=== PATIENT | male | born 1965 ===

== ENCOUNTER 2018-04-14 09:46 | Day surgery (SDC) | payer MEDICARE, MEDICAID ==
[2017-05-22 10:54] VITALS: BMI 24.4
[2018-04-14] MEDS ORDERED: Gentamicin 160 MG in Sodium Chloride 0.9% 100 ML IVPB ONE (11:58)
[2018-04-14] MEDS ORDERED: Gentamicin 80 mg in 0.9% NS 160 MG/200 ML BAG IVPB ONE (12:09)
[2018-04-14] MEDS ORDERED: Propofol 10 mg/ml Inj (20 ML) ONE ×2 (12:11→12:23)
[2018-04-14] MEDS ORDERED: Midazolam 2 MG/2 ML VIAL ONE (12:11)
[2018-04-14] MEDS ORDERED: Ciprofloxacin 400mg/200ml D5W 400 MG/200 ML BAG IVPB ONE (12:19)
[2018-04-14] MEDS ORDERED: Lidocaine 2% Jelly (Uro-Jet) ONE (12:27)
--- NOTE | 2018-04-14 12:35 | PCM.SURG1 ---
Surgeon's Initial Post Op Note - Surgeon's Notes Surgeon: Sedrick Project Management Instructor: NETTIE Type of Anesthesia: General LMA Anesthesia Administered By: Staff Pre-Operative Diagnosis: BPH/BOWLES Operative Findings: SAME Post-Operative Diagnosis: BPH/BOWLES Operation Performed: CYSTO Specimen/Specimens Removed: NA Estimated Blood Loss: EBL {In ML}: 0 Blood Products Given: N/A Drains Used: No Drains Post-Op Condition: Good Date of Surgery/Procedure: 04/14/18 Time of Surgery/Procedure: 12:35
[2018-04-14] MEDS: HYDROmorphone 0.5 mg/0.5 ml ISec IVP PRN ×2 (12:45→13:00)
[2018-04-14] MEDS ORDERED: HYDROmorphone 0.5 mg/0.5 ml ISec ONE (12:47)
[2018-04-14 13:11] VITALS: O2SAT 97
[2018-04-14 13:57] VITALS: BP 116/71
[2018-04-14 14:11] VITALS: PULSE 74; RESP 16; TEMP 97.5
--- NOTE | 2018-04-14 23:27 | OP ---
PROCEDURE DATE: 04/14/2018 PREOPERATIVE DIAGNOSES: Urinary frequency and slowing of the stream. POSTOPERATIVE DIAGNOSES: Urinary frequency and slowing of the stream due to benign prostatic hypertrophy with bladder outlet obstruction. PROCEDURE: Cystopanendoscopy. DESCRIPTION OF THE PROCEDURE: Procedure is as follows: Prior to the procedure, a detailed informed consent was obtained from the patient explaining all risks, complications, and limitations of this procedure. He agreed to accept the risks, complications, and limitations. He was brought into the room, and a time-out was taken according to the rules and regulations of [facility]. The patient was draped and prepped in lithotomy position and cystoscoped with #21 Storz panendoscope. Pendulous and membranous urethra was normal. The prostatic urethra showed trilobar hypertrophy with significant outlet obstruction. The bladder was entered atraumatically. There was no evidence of urothelial tumor or stone. Both ureteral orifices effluxed clear urine. There was +3 trabeculation of the bladder. Based on this observation, there appears to be significant bladder outlet obstruction. Due to BPH, the patient will be started on Flomax and kept on Cipro for one week and follow up in our office, and we will determine further therapy. Dane Dubose MD
== END 2018-04-14 14:15 | disposition home or self-care (01) ==
LOC: C.SDS 09:46
PROVIDERS: ATTEND Urology
DX: N40.1 Benign prostatic hyperplasia with lower urinary tract symptoms (principal); R35.0 Frequency of micturition; R39.12 Poor urinary stream
CPT/HCPCS: 52000; 82948; J0744; J1170; J1580

== ENCOUNTER 2018-05-19 09:45 | Day surgery (SDC) | payer MEDICARE, MEDICAID ==
[2018-04-25 11:40] VITALS: BMI 26.4
[2018-05-19 11:38] LABS: BASO # 0.1 K/uL (0.0-0.2); BASO % 0.7 % (0.0-2.0); EOS # 0.2 K/uL (0.0-0.7); EOS % 1.6 % (0.0-4.0); HEMOGLOBIN 12.7 g/dL (12.0-18.0); LYMPH # 2.2 K/uL (1.0-4.3); LYMPH % 23.1 % (20.0-40.0); MEAN CORPUSCULAR HEMOGLOBIN 27.1 pg (27.0-31.0); MEAN PLATELET VOLUME 7.6 fL (7.2-11.7); MONO # 0.6 K/uL (0.0-0.8); MONO % 5.7 % (0.0-10.0); NEUT # 6.6 K/uL (1.8-7.0); NEUT % 68.9 % (50.0-75.0); RBC 4.71 Mil/uL (4.40-5.90); RED CELL DISTRIBUTION WIDTH 14.7 % (11.5-14.5); WHITE BLOOD COUNT 9.6 K/uL (4.8-10.8)
[2018-05-19 11:44] LABS: INR 1.1; PROTHROMBIN TIME 11.9 SECONDS (9.7-12.2)
[2018-05-19 11:46] LABS: MEAN CELL VOLUME 82.1 fL (80.0-94.0)
[2018-05-19 11:51] LABS: BLOOD UREA NITROGEN 19 mg/dL (9-20); CALCIUM 8.5 mg/dl (8.6-10.4); GFR NON-AFRICAN AMERICAN > 60
[2018-05-19] MEDS ORDERED: Gentamicin 80 mg in 0.9% NS 160 MG/200 ML BAG IVPB ONE (13:32)
[2018-05-19] MEDS ORDERED: Ciprofloxacin 400mg/200ml D5W 400 MG/200 ML BAG IVPB ONE (13:32)
[2018-05-19] MEDS ORDERED: Propofol 10 mg/ml Inj (20 ML) ONE (13:34)
[2018-05-19] MEDS ORDERED: Midazolam 2 MG/2 ML VIAL ONE (13:35)
[2018-05-19] MEDS ORDERED: Lidocaine Hydrochloride 5 ML INJ ONE (14:12)
--- NOTE | 2018-05-19 14:20 | PCM.SURG1 ---
Surgeon's Initial Post Op Note - Surgeon's Notes Surgeon: Sedrick Election Supervisor: maria antonia Type of Anesthesia: General LMA Anesthesia Administered By: staff Pre-Operative Diagnosis: BPH/Serna Operative Findings: same Post-Operative Diagnosis: Same Operation Performed: TULAP Specimen/Specimens Removed: NA Estimated Blood Loss: EBL {In ML}: 0 Blood Products Given: N/A Drains Used: No Drains Post-Op Condition: Good Date of Surgery/Procedure: 05/19/18 Time of Surgery/Procedure: 14:19
[2018-05-19] MEDS: HYDROmorphone 0.5 mg/0.5 ml ISec IVP PRN ×2 (14:37→14:55)
[2018-05-19 15:31] VITALS: PULSE 81; RESP 6; O2SAT 97
[2018-05-19 15:59] VITALS: TEMP 98
[2018-05-19 16:01] VITALS: BP 118/68
--- NOTE | 2018-05-20 07:16 | OP ---
PROCEDURE DATE: 05/19/2018 PREOPERATIVE DIAGNOSIS: Benign prostatic hypertrophy with bladder outlet obstruction. POSTOPERATIVE DIAGNOSIS: Benign prostatic hypertrophy with bladder outlet obstruction. PROCEDURE: Transurethral laser ablation of the prostate (GreenLight laser ablation of the prostate). SURGEON: Dane Dubose MD PROCEDURE IN DETAIL: Prior to the procedure, a detailed informed consent was obtained from the patient. He is aware of all the risks and complications of this procedure and alternative ways of treating BPH with bladder outlet obstruction. He received a detailed information about all the risks and limitations of this procedure and was willing to accept them and signed the consent. He was brought into the room, and a time-out was taken according to the rules and regulations of [facility]. The patient was then positioned in the lithotomy position and draped and prepped in the usual manner. The patient was cystoscoped with the #21 laser cystoscope. The pendulous and membranous urethras were normal. The prostatic urethra showed trilobar hypertrophy with a very large left lobe and a smaller right lobe. Bladder was entered atraumatically. There was no evidence of urothelial tumor or stone. There was no median lobe. The vaporization was begun just distal to the bladder neck on the left side at 11 o'clock and all obstructing tissue was vaporized with the laser with care not to injure the external sphincter, verumontanum, ureteral orifices. The attention was then drawn to the opposite side, which vaporized in a similar fashion as well as the base and the roof tissue. No injury occurred to the verumontanum, external sphincter, ureteral orifices, or bladder. Patient tolerated this procedure well. There was very minimal bleeding. A #20 two-way 5-mL catheter was inserted and there was clear irrigation drainage. Patient was sent to the recovery room in good condition. Dane Dubose MD
== END 2018-05-19 16:10 | disposition home or self-care (01) ==
LOC: C.SDS 09:45
PROVIDERS: ATTEND Urology
DX: N40.1 Benign prostatic hyperplasia with lower urinary tract symptoms (principal)
CPT/HCPCS: 36415; 52648; 80048; 82948; 85025; 85610; 85730; J0744; J1170; J1580